=== PATIENT | female | born 1955 | race Caucasian/White ===

== ENCOUNTER → 2020-09-20 12:21 | Outpatient (CLI) | payer MEDICARE, OTHER, SELFPAY ==
--- NOTE | 2020-09-20 12:34 | DI.MRI.S_ITS ---
PROCEDURE: MR THORACIC SPINE WO CON INDICATIONS: Lumbar and Thoracic pain TECHNIQUE: Noncontrast sagittal T1 spine echo and T2 fast spin echo, sagittal STIR, axial T1 and T2 fast spin echo through the thoracic spine. COMPARISON: [facility], , MR LUMBAR SPINE WO CON, 09/20/2020, 13:24. FINDINGS: Image quality: Excellent. Alignment and Curvature: There is normal bony alignment. Lower cervical fusion. Bone Marrow: Marrow is of normal overall signal. No acute vertebral body compression fractures. Mild chronic superior endplate compression fracture of T12. No other thoracic compression fractures. Spinal Cord: Visualized spinal cord is normal in size and signal. Paraspinous Soft Tissues: No paravertebral masses. Miscellaneous: On axial images, central canal and foramina appear widely patent at all scanned levels. There is a minimal left paracentral disc protrusion without canal stenosis T6-T7. There is a mild left paracentral disc protrusion without canal stenosis at T7-T8. Mild disc bulge at T11-T12 without canal stenosis. IMPRESSION: 1. Mild chronic T12 compression. No acute compressions. 2. Minimal left paracentral disc protrusion at T6-T7, mild left paracentral disc protrusion at T7-T8 without canal stenosis. 3. No canal stenosis or foraminal stenosis. Dictated by: Thomas Cristina M.D. on 09/22/2020 at 9:06 Approved by: Thomas Cristina M.D. on 09/22/2020 at 9:25
--- NOTE | 2020-09-20 12:34 | DI.MRI.S_ITS ---
PROCEDURE: MR LUMBAR SPINE WO CON INDICATIONS: Lumbar and Thoracic pain TECHNIQUE: Noncontrast sagittal T1 spin echo and T2 fast echo, sagittal STIR, axial T1 and T2 fast spin echo through the lumbar spine. Axial and oblique coronal T1 spin echo and STIR through the sacrum. In cases with scoliosis, additional coronal T2 fast spin echo may be performed. COMPARISON: None. FINDINGS: Image quality: Excellent. Alignment and Curvature: There is normal bony alignment. No plain films are available for comparison. In the absence of plain films, it is assumed that there are 5 non rib-bearing lumbar vertebral bodies and that axial imaging was obtained from T12-L1 through L5-S1. Bone Marrow: Marrow is of normal overall signal. No acute vertebral body compression fractures. Mild chronic superior endplate compression of T12. No sacral fractures. Spinal Cord: Conus medullaris terminates at the L2 level. Visualized cord demonstrates normal signal and size. Paraspinous Soft Tissues: No paravertebral masses. T12-L1: No canal stenosis or foraminal stenosis. L1-L2: No canal stenosis or foraminal stenosis. L2-L3: No canal stenosis or foraminal stenosis. L3-L4: Minimal disc bulge. No canal stenosis or foraminal stenosis. L4-L5: Mild disc bulge. No canal stenosis or foraminal stenosis. L5-S1: Mild facet hypertrophy. Mild disc bulge. No canal stenosis or foraminal stenosis. IMPRESSION: 1. Numbering system assumes that axial imaging was obtained from T12-L1 through L5-S1. 2. Disc bulges at L3-L4 through L5-S1. 3. Mild facet hypertrophy at L5-S1. 4. No canal stenosis or foraminal stenosis. 5. Mild chronic superior endplate compression of T12. Dictated by: Thomas Cristina M.D. on 09/22/2020 at 9:25 Approved by: Thomas Cristina M.D. on 09/22/2020 at 9:29
== END ==
PROVIDERS: Referring Provider Dentist Orthodontics and Dentofacial Orthopedics; Visit Provider Dentist Orthodontics and Dentofacial Orthopedics
DX: M51.24 Other intervertebral disc displacement, thoracic region (principal); M51.26 Other intervertebral disc displacement, lumbar region; M51.27 Other intervertebral disc displacement, lumbosacral region
CPT/HCPCS: 72146; 72148